=== PATIENT | male | born 1985 | race Caucasian/White ===

== ENCOUNTER 2017-11-03 06:18 | Day surgery (SDC) | payer BC ==
[2017-11-02 09:05] VITALS: BMI 30.4
[2017-11-03] MEDS ORDERED: Midazolam HCl 2 mg/2 ml Vial ONE ×2 (06:23→06:28)
[2017-11-03] MEDS ORDERED: Ropivacaine 0.2% HCl/PF 20 ML ONE (06:23)
[2017-11-03] MEDS ORDERED: Fentanyl 100 MCG/2 ML VIAL ONE ×2 (06:23→07:38)
[2017-11-03] MEDS ORDERED: Ropivacaine 0.5% HCl/PF (150 MG/30 ML VIAL) ONE (06:44)
[2017-11-03] MEDS ORDERED: CEFAZOLIN/Water 2 GM/20 ML SYRINGE ONE (06:44)
[2017-11-03] MEDS ORDERED: Bupivacaine/Epinephrine 0.25% 30 ML VIAL ONE (06:50)
[2017-11-03] MEDS ORDERED: Lidocaine 1% PF 5 ML VIAL ONE (06:58)
[2017-11-03] MEDS ORDERED: PROPOFOL 200 MG/20 ML VIAL ONE (06:58)
[2017-11-03] MEDS ORDERED: Ondansetron HCl/PF 4 MG/2 ML Vial ONE (06:58)
[2017-11-03] MEDS ORDERED: Ketorolac Tromethamine 30 MG/ML VIAL ONE (06:58)
[2017-11-03] MEDS ORDERED: traMADol HCl 50 MG TAB PO PRN ×2 (07:31)
[2017-11-03] MEDS ORDERED: Ondansetron HCl/PF 4 MG/2 ML Vial IVP PRN (07:31)
[2017-11-03] MEDS ORDERED: Promethazine HCl 25 MG/ML VIAL IM PRN (07:31)
[2017-11-03] MEDS ORDERED: Ropivacaine 0.2% 550 ML 550 ML NERVE BLCK SCH (07:31)
[2017-11-03] MEDS ORDERED: Zolpidem Tartrate 5 MG TAB PO PRN (07:31)
[2017-11-03] MEDS ORDERED: Ketorolac Tromethamine 30 MG/ML VIAL IVP PRN (07:31)
[2017-11-03] MEDS ORDERED: HYDROcodone/Acetaminophen 10/325 mg Tablet PO PRN ×2 (07:31)
[2017-11-03] MEDS ORDERED: Morphine 4 MG/ML VIAL ONE (10:56)
[2017-11-03] MEDS ORDERED: Bupivacaine PF 0.5% 30 ML VIAL ONE (11:37)
--- NOTE | 2017-11-03 13:06 | OP ---
DATE OF PROCEDURE: 11/03/2017 PREOPERATIVE DIAGNOSIS: Right shoulder anterior and posterior labral tear secondary to episode of instability. POSTOPERATIVE DIAGNOSIS: Right shoulder anterior and posterior labral tear secondary to episode of instability. PROCEDURE PERFORMED: Right shoulder arthroscopy with arthroscopic anterior and posterior labral repair. SURGEON: Victor Manuel Holloway M.D. AUTOMOTIVE [employer]CH[employer]OLOGY INSTRUCTOR: None. BLOOD LOSS: Minimal. COMPLICATIONS: None. ANESTHESIA: The patient had general anesthetic. He also had a block. We did use multiple implants which were all from [employer]. For the anterior Bankart lesion, we used three 2.4 mm SutureTak anchors. In the back, we used one 2.9 mm PushLock. CONDITION: He did go to the recovery room in stable condition. INDICATIONS: This is a 32-year-old male who has been having years of instability from a previous injury playing baseball, then recently this summer had an episode of pain and spontaneous dislocation/relocation with a posterior dislocation from water skiing. At this time, patient opted to have surgery. DESCRIPTION OF PROCEDURE: After all appropriate consent forms were explained and signed, he was taken back to the operating room and at this time was given general anesthetic. Once the level of anesthesia was appropriate, he was rolled into the left lateral decubitus position with all bony prominences well- padded. Beanbag was inflated to hold him in this position. An axillary roll was placed underneath the left axilla. The arm was then taken through full range of motion and was found to be stable with posterior load unstable anteriorly. The patient was then hung up in traction with 12 pounds in standard fashion. The right shoulder and upper extremity were then prepped and draped in the standard surgical fashion. Bony anatomic landmarks were drawn out and the subacromial space was infiltrated with Marcaine with epinephrine. Posterior portal was established and the scope was placed into the shoulder joint. An anterior working portal was made just off the superior edge of subscapularis as far lateral as possible and a cannula was placed. Through this cannula, we then performed diagnostic arthroscopy. Articular surface of the humeral head and glenoid were in good condition. There was a small indentation on the anterior portion of the humeral head that goes along with reverse Hill-Sachs, but this is a very small and cartilage was still on top of this. There were no loose bodies noted in the axillary pouch. The glenoid was in excellent condition. There was no significant appearance of bone loss either anterior or posterior. The posterior labrum was beat up and frayed. The anterior labrum upon probing appeared to have the appearance of Bankart which had never fully healed or scarred into its normal position. Biceps tendon was found to be completely normal and intact. The bicep superior labral complex was also probed and found to be intact. The inferior labrum was found to be intact. Subscapularis was normal. At this time, we decided we will need to perform both anterior and posterior Bankart repairs. Anterior repair at this time was performed by making a secondary cannula superolateral just above the biceps first utilizing a needle localization technique and then placing a second cannula. Through these, two working cannulas of the scope in the back, first used the elevator to elevate and detach the anterior labrum from the bony glenoid going down as far as to visualize the subscapularis musculature. Once this was done, we then took a rasp to create a bleeding response, not only the bony surface, but also on the labral surface and once this was done, a shaver was introduced to remove all loose debris. At this time, we then placed the guide for the 2.4 mm SutureTak. We drilled and placed a double-loaded SutureTak and used a pigtail to grab tissue inferior not only the capsule, but also labrum inferior to the anchor so that when this was tied, it would pull this up superiorly. This was done just below the anterior inferior glenohumeral ligament. Once this was tied, we had set nice tension and we then placed two more SutureTak again utilizing the pigtail to go through the tissue and performed our anterior Bankart repair. Once this was done, a probe was used to probe anteriorly and this was found to have nice repair reconstitution of a bumper and found to be stable. Again, the superior labrum was intact and at this time we then placed the scope into this high anterolateral cannula and using a switching stick placed a secondary green cannula posterior so that we had 2 working cannulas anterior and posterior. Through the anterior and posterior cannula, the posterior labrum was evaluated and once it was debrided realistically there was only a small area right around 03:30 to 9 o'clock, which was completely detached using the elevator. Again, this was fully evaluated and it was felt that it would be detrimental to actually detach what appeared to be just more scuffed up labrum more than anything else. Therefore, this detached area was prepared with the elevator as well as rasp and shaver. Once this was done, a penetrator was used to pass a FiberWire suture through the posterior capsule in this area of posterior labrum. We then drilled and placed a 2.9 PushLock in standard fashion. This gave us nice repair of the small posterior tear and at this time, the scope was placed not only through this high anterolateral portal, but also replaced into the posterior cannula to reevaluate our humeral head and it was found to fit nicely in the central portion of the glenoid. I looked around 1 more time to make sure that there is no more labrum that needed to be repaired and there was no more loose pieces of tissue that needed to be removed and once this was done, the scope was removed, the shoulder was drained and we then closed our portals with simple nylon sutures. A bulky sterile dressing was applied. The patient was then awakened and taken to the recovery room in stable condition. All counts were correct at the end of the case and he received preoperative IV antibiotics. [id number]
== END 2017-11-03 12:30 | disposition home or self-care (01) ==
LOC: SDC 06:18
PROVIDERS: ATTEND Orthopaedic Surgery
PROC: 0MM14ZZ Reattachment of Right Shoulder Bursa and Ligament, Percutaneous Endoscopic Approach (ICD-10-PCS; principal; 2017-11-03)
DX: S43.431A Superior glenoid labrum lesion of right shoulder, initial encounter (principal); F12.90 Cannabis use, unspecified, uncomplicated; Z96.7 Presence of other bone and tendon implants; Z98.890 Other specified postprocedural states
CPT/HCPCS: A4306; C1713; J1885; J2001; J2250; J2270; J2405; J2704; J2795; J3010; S0020